=== PATIENT | female | born 1935 | race Caucasian/White ===

== ENCOUNTER 2018-03-11 08:42 | Outpatient (CLI) | payer MEDICARE, BC | END 2018-03-11 08:43 | disposition home or self-care (01) | LOC: BICMAMMO 08:42 | PROVIDERS: ATTEND Surgery | DX: Z12.31 Encounter for screening mammogram for malignant neoplasm of breast (principal); Z80.3 Family history of malignant neoplasm of breast | CPT/HCPCS: 77063; 77067 ==

== ENCOUNTER 2018-10-31 08:49 | Outpatient (CLI) | payer MEDICARE, BC ==
--- NOTE | 2018-10-31 09:49 | RAD ---
CHEST TWO VIEWS: History: Dyspnea. Comparison: None. FINDINGS: Slight elongation of the aorta. Normal cardiac silhouette. The pulmonary vessels and hilum are normal . Costophrenic angles are clear. Hyperinflation, without consolidation or mass. No pneumothorax or os seous abnormalities. Cervical fusion hardware is noted. IMPRESSION: No acute cardiopulmonary process. POS: [facility]
== END 2018-10-31 08:50 | disposition home or self-care (01) ==
LOC: RAD 08:49
PROVIDERS: ATTEND Internal Medicine Critical Care Medicine
DX: R06.00 Dyspnea, unspecified (principal)
CPT/HCPCS: 71046

== ENCOUNTER 2019-03-11 08:45 | Outpatient (CLI) | payer MEDICARE, BC ==
--- NOTE | 2019-03-13 16:42 | PFT ---
PATIENT HISTORY: HEIGHT: WEIGHT: SMOKER: HOW LONG: PACKS PER DAY PRODUCTIVE COUGH: LUNG DISEASE: PHYSICIAN INTERPRETATION FINAL REPORT: Patient had fair effort and good cooperation. Following the maneuvers, the patient developed altered mentation, and was dizzy and confused. She syncopated and went to the emergency department. PFT data: FVC 2.28 (82%), FEV1 1.67 (88%), FEV1/FVC 0.73. FRC 1.10 (48%), RV 2.11 (778), TLC 4.21 (77%). DLCO 12.39 (58%) The FEV1 and FVC fall within the lower limits of normal. There is a near significant improvement in the FEV1 following the administration of a bronchodilator. The ratio between the FEV1 and the FVC is normal suggesting no significant evidence of obstructive air flow limitation. The FRC RV and Total Lung Capacity are all mildly impaired. Diffusion Capacity is moderately impaired but corrects for alveolar ventilation. IMPRESSION: Overall, these pulmonary function studies are most consistent with minimal restrictive lung disease, with moderate reduction in gas exchange. Compared to 2008, there has been no significant change FVC or the FEV1. 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
== END 2019-03-11 08:46 | disposition home or self-care (01) ==
LOC: CP 08:45
PROVIDERS: ATTEND Internal Medicine Critical Care Medicine
DX: J47.9 Bronchiectasis, uncomplicated (principal); R05 Cough
CPT/HCPCS: 94060; 94727; 94729

== ENCOUNTER 2019-03-11 11:12 | Emergency (ER) | payer MEDICARE, BC ==
[2019-03-11 11:53] LABS: #Eosinphils 0.1 thou/uL (0.0-0.7); #Lymphocytes 3.2 thou/uL (1.20-3.40); #Monocytes 0.7 thou/uL (0.11-0.59); #Neutrophils 4.8 thou/uL (1.40-6.50); %Basophils 0.6 % (0.0-1.0); %Eosinophils 0.9 % (0.0-10.0); %Lymphocytes 35.9 % (21.0-51.0); %Monocytes 7.5 % (0.0-10.0); %Neutrophils 55.1 % (42.0-75.0); Hemoglobin 13.2 g/dL (12.0-16.0); Mean Corpuscular HGB CONC 31.4 g/dL (32.0-36.0); Mean Corpuscular Hemoglobin 29.8 pg (27.0-31.0); Mean Corpuscular Volume 94.9 fL (78.0-98.0); Mean Platelet Volume 8.7 fL (7.4-10.4); Platelet Count 239 thou/uL (130-400); RBC Distribution Width 12.2 % (11.5-14.5); Red Blood Cell (RBC) Count 4.43 mill/uL (4.20-5.40); White Blood Cell (WBC) Count 8.8 thou/uL (4.8-10.8)
--- NOTE | 2019-03-11 11:54 | RAD ---
XR Chest 1 View Portable HISTORY: Unresponsive,, altered mental status COMPARISON: 10/31/2018. FINDINGS: The heart size is normal. The lungs are well expanded without focal areas of consolidation, pneumothorax or pleural effusions. IMPRESSION: No radiographic evidence of acute cardiopulmonary process.
[2019-03-11 12:51] LABS: Albumin 4.4 g/dL (3.4-4.8)
[2019-03-11 12:52] LABS: Chloride 103 mmol/L (98-107); Potassium 3.8 mmol/L (3.5-5.1); Sodium 136 mmol/L (136-145)
[2019-03-11 12:53] LABS: Calcium 10.2 mg/dL (7.8-10.44)
[2019-03-11 12:54] LABS: Globulin 3.4 g/dL (2.4-3.5); Glucose 98 mg/dL (83-110); Protein, Total 7.8 g/dL (6.0-8.3)
[2019-03-11 12:55] LABS: Anion Gap 11 mmol/L (10-20); Carbon Dioxide 26 mmol/L (23-31)
[2019-03-11 12:56] LABS: Bilirubin, Total 0.5 mg/dL (0.2-1.2)
[2019-03-11 12:57] LABS: Alkaline Phosphatase 75 U/L (40-150); Calc. Creatinine Clearance 0 mL/min (70-130); Estimated GFR-MDRD 56
[2019-03-11 12:58] LABS: BUN (Urea Nitrogen) 28 mg/dL (9.8-20.1)
[2019-03-11 12:59] LABS: AST (SGOT) 20 U/L (5-34)
[2019-03-11 13:00] LABS: ALT (SGPT) 17 U/L (8-55)
--- NOTE | 2019-03-15 11:04 | EKG ---
Test Reason : Blood Pressure : / mmHG Vent. Rate : 063 BPM Atrial Rate : 063 BPM P-R Int : 144 ms QRS Dur : 124 ms QT Int : 474 ms P-R-T Axes : 027 027 013 degrees QTc Int : 485 ms Normal sinus rhythm Right bundle branch block Abnormal ECG Confirmed by BRIANNA CHINO ([id number]), school photograph editor DOM BUCHANAN ([id number]) on 03/15/2019 11:04:10 AM Referred By: Confirmed By:BRIANNA CHINO
== END 2019-03-11 13:46 | disposition home or self-care (01) ==
LOC: ERS 11:12
DX: R42 Dizziness and giddiness (principal); R55 Syncope and collapse
CPT/HCPCS: 36415; 36416; 71045; 80053; 83880; 84484; 85025; 93005; 94060; 94727; 94729

== ENCOUNTER 2019-04-03 08:17 | Outpatient (CLI) | payer MEDICARE, BC ==
--- NOTE | 2019-04-03 16:04 | CT ---
HIGH RESOLUTION CHEST CT: 04/03/19 HISTORY: Cough, bronchiectasis, long history of shortness of breath. COMPARISON: Chest x-ray of 03/11/19. The lungs are clear of any infiltrative process. Some minimal linear scarring seen in both lung field s. There is no evidence of any honeycombing. There is no evidence of any definite bronchiectatic bro ge. The bronchials are roughly the same diameter as adjacent pulmonary arteries. There is no intersti tial fibrotic lung change noted. I do not identify any pulmonary nodules. Mediastinal structures show some minimal coronary artery calcifications. The visualized liver parench yma is normal. IMPRESSION: Minimal linear parenchymal scarring within both lung pascual. POS: [facility]
== END 2019-04-03 08:18 | disposition home or self-care (01) ==
LOC: BICCT 08:17
PROVIDERS: ATTEND Internal Medicine Critical Care Medicine
DX: J47.9 Bronchiectasis, uncomplicated (principal); R05 Cough; J98.4 Other disorders of lung
CPT/HCPCS: 71250

== ENCOUNTER 2019-10-09 10:08 | Outpatient (CLI) | payer MEDICARE, BC ==
--- NOTE | 2019-10-09 10:34 | MMO ---
Bilateral MAMMO Bilat Screen [facility]. CLINICAL HISTORY: Patient is 83 years old and is seen for screening. The patient has the following family history of breast cancer: mother, at age 70. The patient has no personal history of cancer. The patient has a history of right Excisional Biopsy in 1993 - Benign. VIEWS: The views performed were: bilateral craniocaudal with tomosynthesis and bilateral mediolateral oblique with tomosynthesis. FILMS COMPARED: The present examination has been compared to prior imaging studies performed at [facility] on 06/04/2014, 12/15/2015, 03/07/2017 and 03/11/2018. This study has been interpreted with the assistance of computer-aided detection. MAMMOGRAM FINDINGS: There are scattered fibroglandular densities. There are stable benign appearing calcifications seen in both breasts. There are no suspicious masses, suspicious calcifications, or new areas of architectural distortion. IMPRESSION: THERE IS NO MAMMOGRAPHIC EVIDENCE OF MALIGNANCY. A ROUTINE FOLLOW-UP MAMMOGRAM IN 1 YEAR IS RECOMMENDED. THE RESULTS OF THIS EXAM WERE SENT TO THE PATIENT. ACR BI-RADS Category 2 - Benign finding MAMMOGRAPHY NOTE: 1. A negative mammogram report should not delay a biopsy if a dominant of clinically suspicious mass is present. 2. Approximately 10% to 15% of breast cancers are not detected by mammography. 3. Adenosis and dense breasts may obscure an underlying neoplasm. Reported by: SILVESTRE EDWARDS MD Electonically Signed: [id number]
== END 2019-10-09 10:09 | disposition home or self-care (01) ==
LOC: BICMAMMO 10:08
PROVIDERS: ATTEND Surgery
DX: Z12.31 Encounter for screening mammogram for malignant neoplasm of breast (principal); Z80.3 Family history of malignant neoplasm of breast
CPT/HCPCS: 77063; 77067

== ENCOUNTER 2020-08-10 14:23 | Outpatient (CLI) | payer MEDICARE, BC ==
--- NOTE | 2020-08-10 15:27 | MRI ---
MRI cervical spinewithout contrast: INDICATIONS: Cervical pain. Radiculopathy COMPARISON:None FINDINGS: Prior anterior fusion procedure. Anterior plate and screws transfix C4, C5, and C6. This produces art ifact at these levels. Interbody implants at these levels with interbody fusion. The other disc spaces are preserved. C2-3: Mild disc bulge and spondylosis. No central canal or foraminal stenosis. C3-4:No significant disc bulge or spondylosis. Left facet hypertrophy results in left foraminal steno sis. C4-5:Interbody fusion. No central canal or foraminal stenosis. C5-6:Interbody fusion with artifact. No evidence of central canal or foraminal stenosis. C6-7:Interbody fusion produces artifact. Spondylosis abuts the anterior cord. No foraminal stenosis. C7-T1:Disc bulge and spondylosis abut the anterior cord. Cervical cord:Cervical spinal cord exhibits normal signal. Soft tissues:No soft tissue abnormality identified. IMPRESSION: 1.Postoperative changes with anterior plate and screws at C4, C5, and C6. Interbody fusion at these l evels.. Artifact limits exam at these levels. 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 Facet hypertrophy results in left foraminal stenosis at C3-4. CT cervical spine may be of benefit to better delineated hardware and reduce artifact.
== END 2020-08-10 14:24 | disposition home or self-care (01) ==
LOC: BICMRI 14:23
PROVIDERS: ATTEND Anesthesiology Pain Medicine
DX: M47.22 Other spondylosis with radiculopathy, cervical region (principal); M48.02 Spinal stenosis, cervical region; M89.38 Hypertrophy of bone, other site; Z98.1 Arthrodesis status
CPT/HCPCS: 72141

== ENCOUNTER 2020-12-02 09:56 | Outpatient (CLI) | payer MEDICARE, BC | END 2020-12-02 09:57 | disposition home or self-care (01) | LOC: BICMAMMO 09:56 | PROVIDERS: ATTEND Surgery | DX: Z12.31 Encounter for screening mammogram for malignant neoplasm of breast (principal); Z80.3 Family history of malignant neoplasm of breast; Z91.89 Other specified personal risk factors, not elsewhere classified | CPT/HCPCS: 77063; 77067 ==

== ENCOUNTER 2022-03-02 17:30 | Outpatient (CLI) | payer MEDICARE, BC | END 2022-03-02 17:31 | disposition home or self-care (01) | LOC: SLEEPLAB 17:30 | PROVIDERS: ATTEND Otolaryngology Plastic Surgery within the Head & Neck | DX: G47.33 Obstructive sleep apnea (adult) (pediatric) (principal); R06.83 Snoring; G47.00 Insomnia, unspecified; I10 Essential (primary) hypertension; F41.9 Anxiety disorder, unspecified; G47.10 Hypersomnia, unspecified | CPT/HCPCS: 95800 ==

== ENCOUNTER 2024-09-15 16:11 | Observation (INO) | payer MEDICARE, BC ==
[~2024-09-15 16:11] MED LIST: Iopamidol-370 76% 500 ML MDV (1 ML CHARGE) ONE
[2024-09-15 16:39] LABS: #Basophils 0.03 10x3/uL (0.0-0.2); %Basophils 0.4 % (0.0-1.0); %Eosinophils 5.1 % (0.0-10.0); %Lymphocytes 35.8 % (21.0-51.0); %Monocytes 6.8 % (0.0-10.0); %Neutrophils 51.6 % (42.0-75.0); Hematocrit 36.3 % (36.0-47.0); Hemoglobin 11.9 g/dL (12.0-16.0); Mean Corpuscular HGB CONC 32.8 g/dL (32.0-36.0); Mean Corpuscular Hemoglobin 32.3 pg (27.0-31.0); Mean Corpuscular Volume 98.6 fL (78.0-98.0); Mean Platelet Volume 9.5 fL (7.4-10.4); Platelet Count 230 10x3/uL (130-400); Red Blood Cell (RBC) Count 3.68 mill/uL (4.20-5.40)
[2024-09-15] MEDS ORDERED: Promethazine HCl 25 MG/ML VIAL ONE (16:41)
[2024-09-15 17:00] LABS: Prothrombin Time 13.6 sec (12.0-14.7)
[2024-09-15 17:01] LABS: PTT 27.7 sec (22.9-36.1)
[2024-09-15 17:07] LABS: ALT (SGPT) 16 U/L (8-55); AST (SGOT) 23 U/L (5-34); Albumin 3.7 g/dL (3.4-4.8); Alkaline Phosphatase 66 U/L (40-110); Anion Gap 13 mmol/L (10-20); BUN (Urea Nitrogen) 29 mg/dL (9.8-20.1); Bilirubin, Total 0.4 mg/dL (0.2-1.2); Calc. Creatinine Clearance 0 mL/min (70-130); Calcium 9.3 mg/dL (7.8-10.44); Carbon Dioxide 22 mmol/L (23-31); Chloride 107 mmol/L (98-107); Estimated GFR 58; Globulin 3.3 g/dL (2.4-3.5); Glucose 111 mg/dL (83-110); Lipase 14 U/L (8-78); Magnesium 1.6 mg/dL (1.6-2.6); Potassium 4.2 mmol/L (3.5-5.1); Sodium 138 mmol/L (136-145)
[2024-09-15 17:13] LABS: Troponin I Less than 0.010 ng/mL (< 0.028)
[2024-09-15] MEDS ORDERED: fentaNYL 50 mcg/mL 1 mL Vial ONE (19:43)
[2024-09-15 20:13] LABS: Troponin I Less than 0.010 ng/mL (< 0.028)
[2024-09-15] MEDS ORDERED: Calcium Carbonate 500 MG ChewTAB PO PRN (22:28)
[2024-09-15] MEDS ORDERED: Ondansetron ODT 4 MG TAB PO PRN (22:28)
[2024-09-15] MEDS ORDERED: Ondansetron PF 4 MG/2 ML Vial IVP PRN (22:28)
[2024-09-15] MEDS ORDERED: Acetaminophen 650 MG Suppository PR PRN (22:28)
[2024-09-15] MEDS ORDERED: Nitroglycerin 0.4 MG TAB (25 Tab Bottle) SL PRN (22:31)
[2024-09-15 23:17] LABS: Troponin I 0.015 ng/mL (< 0.028)
[2024-09-16 00:13] VITALS: BMI 23.2
[2024-09-16 02:12] LABS: Troponin I Less than 0.010 ng/mL (< 0.028)
[2024-09-16 05:08] LABS: #Basophils 0.04 10x3/uL (0.0-0.2); %Basophils 0.6 % (0.0-1.0); %Lymphocytes 43.3 % (21.0-51.0); %Monocytes 10.5 % (0.0-10.0); %Neutrophils 39.5 % (42.0-75.0); Hematocrit 34.1 % (36.0-47.0); Hemoglobin 11.2 g/dL (12.0-16.0); Mean Corpuscular HGB CONC 32.8 g/dL (32.0-36.0); Mean Corpuscular Hemoglobin 32.3 pg (27.0-31.0); Mean Corpuscular Volume 98.3 fL (78.0-98.0); Mean Platelet Volume 10.2 fL (7.4-10.4); Platelet Count 218 10x3/uL (130-400); RBC Distribution Width 13.1 % (11.5-14.5); Red Blood Cell (RBC) Count 3.47 mill/uL (4.20-5.40)
[2024-09-16 05:29] LABS: Anion Gap 14 mmol/L (10-20); BUN (Urea Nitrogen) 31 mg/dL (9.8-20.1); Calc. Creatinine Clearance 33 mL/min (70-130); Carbon Dioxide 22 mmol/L (23-31); Cardiac Risk 3.3 (Less than 4.5); Chloride 107 mmol/L (98-107); Cholesterol 147 mg/dl (< 200 Desired); Estimated GFR 47; Glucose 86 mg/dL (83-110); HDL Cholesterol 45 mg/dL (>60 Neg Risk); LDL Cholesterol, Calculated 81 mg/dL; Magnesium 1.8 mg/dL (1.6-2.6); Sodium 139 mmol/L (136-145); Triglycerides 104 mg/dL (Less than 150)
[2024-09-16 05:47] LABS: Hemoglobin A1c 5.4 % (4.0-6.0)
[2024-09-16] MEDS: Magnesium 2 GM/50 ML(in water) 2 GM in Premix 1 BAG IVPB SCH (08:54)
[2024-09-16] MEDS: Famotidine 20 MG TAB PO SCH (08:54)
[2024-09-16] MEDS ORDERED: Famotidine 20 MG TAB PO SCH (09:00)
[2024-09-16] MEDS: Acetaminophen 325 MG TAB PO PRN (11:16)
[2024-09-16] MEDS: Pantoprazole 40 MG VIAL IVP SCH (11:16)
[2024-09-16 11:19] VITALS: BP 135/60; TEMP 98.2
[2024-09-17] MEDS ORDERED: Pantoprazole 40 MG VIAL IVP SCH (09:00)
== END 2024-09-16 12:30 | disposition left against medical advice (07) ==
LOC: ERS 16:11 → OBS 21:40
PROVIDERS: ADMIT Internal Medicine; ATTEND Internal Medicine
DX: R07.89 Other chest pain (principal); I12.9 Hypertensive chronic kidney disease with stage 1 through stage 4 chronic kidney disease, or unspecified chronic kidney disease; N18.9 Chronic kidney disease, unspecified; K21.9 Gastro-esophageal reflux disease without esophagitis; E78.5 Hyperlipidemia, unspecified; Z90.49 Acquired absence of other specified parts of digestive tract; Z90.710 Acquired absence of both cervix and uterus; Z90.89 Acquired absence of other organs; Z88.8 Allergy status to other drugs, medicaments and biological substances; Z88.1 Allergy status to other antibiotic agents; Z79.82 Long term (current) use of aspirin; Z79.899 Other long term (current) drug therapy
CPT/HCPCS: 71045; 71275; 74177; 80048; 80053; 80061; 83036; 83690; 83735 ×2; 83880; 84443; 84484 ×3; 85025 ×2; 85610; 85730; 93005; 94760; 96374; 96375 ×2; 99285; G0378 ×2; J2470; J2550; J3010; J3475; 36415; Q9967